=== PATIENT | male | born 1990 | race African-American/Black ===

== ENCOUNTER 2017-10-23 22:16 | Emergency (ER) | payer OTHER ==
[~2017-10-23] VITALS: Ht 175.3 cm; Wt 102.1 kg
[2017-10-23] MEDS ORDERED: IBU800 MG PO (23:42)
[2017-10-23 23:52] VITALS: BP 128/81
== END 2017-10-23 23:53 | disposition home or self-care (01) ==
LOC: M.ERS 22:16
DX: S63.681A Other sprain of right thumb, initial encounter (principal); X50.0XXA Overexertion from strenuous movement or load, initial encounter; Y93.89 Activity, other specified; Y92.89 Other specified places as the place of occurrence of the external cause; Y99.8 Other external cause status